=== PATIENT | female | born 1955 | race Caucasian/White ===

== ENCOUNTER → 2018-10-31 | Day surgery (SDC) | payer OTHER ==
[~2018-10-31] MED LIST: LIDOCAINE 1% 300 MG/30 ML SDV ONE
== END | disposition home or self-care (01) ==
LOC: FIMAGING 07:49
PROVIDERS: ATTEND Surgery
PROC: BH40ZZZ Ultrasonography of Right Breast (ICD-10-PCS; principal; 2018-10-31)
DX: C50.411 Malignant neoplasm of upper-outer quadrant of right female breast (principal)